=== PATIENT | female | born 1980 | race Asian ===

== ENCOUNTER 2017-01-17 23:07 | Outpatient (CLI) | payer OTHER ==
[2017-01-18] MEDS ORDERED: MONT10TA PO (00:49)
[2017-01-18] MEDS ORDERED: MULT VITAMI1 PO (03:30)
== END 2017-01-17 23:18 | disposition short-term general hospital (02) ==
LOC: AMB 23:07
DX: R53.1 Weakness (principal); R20.0 Anesthesia of skin
CPT/HCPCS: A0425; A0427

== ENCOUNTER 2017-01-17 23:27 | Observation (INO) | payer OTHER ==
[2017-01-17] VITALS (7 sets, daily range): BP systolic 134–166; BP diastolic 61–100; TEMP 98.4
[~2017-01-17] VITALS: Ht 167.6 cm; Wt 87.2 kg
[2017-01-17 23:59] LABS: PLATELET COUNT 305 K/uL (152-353)
[2017-01-18] VITALS (9 sets, daily range): BP systolic 120–153; BP diastolic 70–98; TEMP 98.1–98.5; BMI 31.0; BMI 26.0
[2017-01-18 00:04] LABS: POTASSIUM 3.4 mmol/L (3.6-5.2); SODIUM 135 mmol/L (136-145)
[2017-01-18] MEDS ORDERED: MONT10TA PO (00:49)
[2017-01-18 01:17] LABS: PARTIAL THROMBOPLASTIN TIME < 17.8 SECONDS (24.5-33.6)
[2017-01-18] MEDS ORDERED: MULT VITAMI1 PO (03:30)
--- NOTE | 2017-01-18 03:31 | NUR ---
RECEIVED PT FROM ER BY STRETCHER TO ROOM 1108. PT ADMITTED WITH TIA VS CVA. PT'S SPEECH IS CLEAR NO FACIAL DROOP.
[2017-01-18 12:56] LABS: PLATELET COUNT 292 K/uL (152-353)
[2017-01-18 13:10] LABS: POTASSIUM 3.6 mmol/L (3.6-5.2); SODIUM 135 mmol/L (136-145)
--- NOTE | 2017-01-18 21:04 | NUR ---
1939 D/C'ED PER YUSUF DOE RN. D/C INSTRUCTIONS PROVIDED. ENCOURAGED TO F/U WITH PCP IN 5-7 DAYS. NO PRESCRIPTIONS GIVEN. TRANSPORTED OUT VIA W/C BY Suraj DOE RN.
== END 2017-01-18 19:40 | disposition home or self-care (01) ==
LOC: ED 23:27 → MED/SURG 01-18 00:45 → ED 01-18 01:24 → MED/SURG 01-18 19:40
PROVIDERS: Internal Medicine
DX: R53.1 Weakness (principal); I10 Essential (primary) hypertension
CPT/HCPCS: 80053; 80307; 80320; 81000; 82550; 82553; 84484; 85027; 85610; 85730; 93005; 96374; 99220; G0378; G0479; J0696; J1650; J1885; J2405; J3490

== ENCOUNTER 2017-03-14 13:03 | Outpatient (CLI) | payer OTHER ==
[~2017-03-14 13:03] MED LIST: MONT10TA PO; MULT VITAMI1 PO
[2017-03-14 13:28] LABS: PLATELET COUNT 282 K/uL (152-353)
[2017-03-14 14:33] LABS: POTASSIUM 4.1 mmol/L (3.6-5.2); SODIUM 138 mmol/L (136-145)
== END 2017-03-14 14:00 | disposition home or self-care (01) ==
LOC: LAB 13:03
PROVIDERS: Nurse Practitioner Family
DX: Z00.00 Encounter for general adult medical examination without abnormal findings (principal); D64.89 Other specified anemias; G43.809 Other migraine, not intractable, without status migrainosus; E55.9 Vitamin D deficiency, unspecified; E78.00 Pure hypercholesterolemia, unspecified
CPT/HCPCS: 80053; 80061; 82306; 82607; 83036; 84436; 84443; 85027

== ENCOUNTER 2017-03-31 03:30 | Observation (INO) | payer OTHER ==
[~2017-03-31] VITALS: Ht 170.2 cm; Wt 85.4 kg
[2017-03-31] MEDS ORDERED: LIPITOR10 MG PO (03:34)
[2017-03-31] MEDS ORDERED: LORTAB 10-325 M1 TAB PO (03:35)
[2017-03-31] MEDS ORDERED: PROM25TA52 PO (03:35)
[2017-03-31] MEDS ORDERED: BAYER CHEWABLE81 MG PO (03:36)
[2017-03-31 03:38] VITALS: BP 153/97; TEMP 98.2
[2017-03-31 03:55] LABS: PLATELET COUNT 275 K/uL (152-353)
[2017-03-31 04:03] LABS: POTASSIUM 3.3 mmol/L (3.6-5.2); SODIUM 136 mmol/L (136-145)
[2017-03-31 04:18] LABS: PARTIAL THROMBOPLASTIN TIME 23.6 SECONDS (24.5-33.6)
[2017-03-31 08:21] VITALS: BP 139/93; TEMP 98.6; Ht 170.2 cm; Wt 85.4 kg
[2017-03-31 12:00] VITALS: BP 108/76; TEMP 98.4
[2017-03-31 16:00] VITALS: BP 129/88; TEMP 98.1
[2017-03-31 20:00] VITALS: BP 123/82; TEMP 97.7
[2017-04-01] VITALS: BP 133/84; TEMP 97.9
[2017-04-01 04:00] VITALS: BP 131/88; TEMP 98
[2017-04-01 05:44] LABS: PLATELET COUNT 228 K/uL (152-353)
[2017-04-01 05:51] LABS: POTASSIUM 4.1 mmol/L (3.6-5.2); SODIUM 140 mmol/L (136-145)
[2017-04-01 08:00] VITALS: BP 131/86; TEMP 97.8
[2017-04-01 11:57] VITALS: BP 150/102; TEMP 98.3
[2017-04-01 16:00] VITALS: BP 147/84; TEMP 99.3
[2017-04-01 20:00] VITALS: BP 129/86; TEMP 98
[2017-04-02] VITALS: BP 124/89; TEMP 98
[2017-04-02 04:00] VITALS: BP 146/91; TEMP 98
[2017-04-02 04:25] LABS: PLATELET COUNT 242 K/uL (152-353)
[2017-04-02 04:49] LABS: POTASSIUM 3.8 mmol/L (3.6-5.2); SODIUM 136 mmol/L (136-145)
[2017-04-02 08:00] VITALS: BP 126/79; TEMP 98.9
[2017-04-02 12:00] VITALS: BP 137/90; TEMP 99.2
== END 2017-04-02 15:00 | disposition home or self-care (01) ==
LOC: ED 03:30 → MED/SURG 04:50
PROVIDERS: Emergency Medicine; ADMIT Family Medicine
DX: R07.89 Other chest pain (principal); E03.8 Other specified hypothyroidism; E87.6 Hypokalemia; R73.9 Hyperglycemia, unspecified; F32.89 Other specified depressive episodes; F41.8 Other specified anxiety disorders
CPT/HCPCS: 36415; 36600; 80048; 80053; 81000; 82550; 82805; 83735; 83880; 84443; 84484; 85007; 85027; 85610; 85730; 93005; 96360; 96361; 96367; 96374; 99220; 99283; G0378; J1650; Q9963

== ENCOUNTER 2017-04-17 15:45 | Outpatient (CLI) | payer OTHER ==
[~2017-04-17 15:45] MED LIST changes: +BAYER CHEWABLE81 MG PO; +LIPITOR10 MG PO; +LORTAB 10-325 M1 TAB PO; +PROM25TA52 PO
== END 2017-04-17 16:50 | disposition home or self-care (01) ==
LOC: LABW 15:45
DX: G45.0 Vertebro-basilar artery syndrome (principal); G43.009 Migraine without aura, not intractable, without status migrainosus
CPT/HCPCS: 36415; 83090; 85651; 86039

== ENCOUNTER 2017-04-23 09:54 | Outpatient (CLI) | payer OTHER | END 2017-04-23 11:00 | disposition home or self-care (01) | LOC: RESP 09:54 | DX: E78.4 Other hyperlipidemia (principal) | CPT/HCPCS: 93306 ==

== ENCOUNTER 2017-05-08 12:13 | Emergency (ER) | payer OTHER ==
[~2017-05-08] VITALS: Ht 167.6 cm; Wt 83.9 kg
[2017-05-08 12:15] VITALS: TEMP 98.1
[2017-05-08 12:52] LABS: PLATELET COUNT 289 K/uL (152-353)
[2017-05-08 12:58] LABS: POTASSIUM 3.8 mmol/L (3.6-5.2); SODIUM 138 mmol/L (136-145)
[2017-05-08 13:43] VITALS: BP 130/89
== END 2017-05-08 13:43 | disposition home or self-care (01) ==
LOC: ED 12:13
DX: I10 Essential (primary) hypertension (principal); R00.0 Tachycardia, unspecified
CPT/HCPCS: 36415; 80053; 82550; 84484; 85027; 93005; 99283

== ENCOUNTER 2018-04-18 16:33 | Outpatient (CLI) | payer OTHER | END 2018-04-18 19:21 | disposition home or self-care (01) | LOC: CT 16:33 | DX: K44.9 Diaphragmatic hernia without obstruction or gangrene (principal) | CPT/HCPCS: Q9963 ==

== ENCOUNTER 2020-10-19 12:56 | Outpatient (CLI) | payer OTHER | END 2020-10-19 19:57 | disposition home or self-care (01) | LOC: MAMMO 12:56 | PROVIDERS: ATTEND Obstetrics & Gynecology | DX: Z12.31 Encounter for screening mammogram for malignant neoplasm of breast (principal) ==

== ENCOUNTER 2021-03-14 18:00 | Observation (INO) | payer OTHER ==
[~2021-03-14] VITALS: Ht 170.2 cm; Wt 85.3 kg
[2021-03-14 19:06] LABS: PLATELET COUNT 316 K/uL (152-353)
[2021-03-14 19:33] VITALS: BP 142/95; TEMP 98.3
[2021-03-14 20:23] LABS: POTASSIUM 3.3 mmol/L (3.6-5.2); SODIUM 137 mmol/L (136-145)
[2021-03-14 20:31] LABS: PARTIAL THROMBOPLASTIN TIME 25.6 SECONDS (24.5-33.6)
[2021-03-14] MEDS ORDERED: NP THYROID30 MG (21:58)
[2021-03-14] MEDS ORDERED: FEXOFENADINE H180 M1 PO (21:59)
[2021-03-14] MEDS ORDERED: AMIODARONE PO (22:01)
[2021-03-14] MEDS ORDERED: PROPRANOLOL1 MG/ML PO (22:03)
--- NOTE | 2021-03-14 22:14 | NUR ---
EMPTIED 400 ML OF URINE. NITROGLYCIN 1 INCH APPLIED TO CHEST WALL. REVIEWED HOME MEDICATIONS. HOME MEDICATION INFORMATION WAS ADDED TO PT'S INFO.
[2021-03-14 22:40] VITALS: BP 142/95; TEMP 98.3; Ht 170.2 cm; Wt 85.3 kg
--- NOTE | 2021-03-14 23:03 | NUR ---
REPORTED LABS TO DR. RAMIREZ. CBC/CMP/DDIMER/TSH/PT/PTT. NEW ORDERS RECEIVED AND CARRIED OUT.
[2021-03-14 23:39] VITALS: BP 117/75; TEMP 98.4
[2021-03-15 03:48] LABS: PLATELET COUNT 281 K/uL (152-353)
--- NOTE | 2021-03-15 03:56 | NUR ---
PT REQUESTED FOR NITRO PATCH TO BE TAKEN OFF. COMPLAINED OF HEADACHE AND SAID THAT SHE DIDNT WANT THAT. STATED THAT SHE WASNT HAVING CHEST PAIN OR AND CHEST DISCOMFORT.
[2021-03-15 04:00] VITALS: BP 111/74; TEMP 97.9
--- NOTE | 2021-03-15 04:23 | NUR ---
PT HAS BEEN GIVEN 40 OF POTASSIUM PO PER ELECTROLYTE PROTOCAL EARLIER. 2 HOURS AFTER THAT ADMINISTRATION 20 ANAHI OF POTASSIUM GIVEN.
--- NOTE | 2021-03-15 04:37 | NUR ---
PT WITH SR ON TELEMETRY. RATE IS 84 BPM.
[2021-03-15 05:03] LABS: POTASSIUM 3.7 mmol/L (3.6-5.2)
[2021-03-15 08:00] VITALS: BP 118/81; TEMP 97.5
--- NOTE | 2021-03-15 09:11 | NUR ---
REPORTED MORNING LABS TO DR. RAMIREZ, DR. RAMIREZ ORDERS FOR PREALBUMIN LAB TO BE DRAWN, GIVE POTASSIUM 20MEQ PO X1 NOW, RESTART HOME MEDS, AND TO MAKE AN APPOINTMENT WITH A SHAKE SPLITTER AT DISCHARGE, NO FURTHER ORDERS GIVEN AT THIS TIME
[2021-03-15] MEDS ORDERED: AMLODIPINE BESYLATE PO (09:52)
--- NOTE | 2021-03-15 11:03 | NUR ---
EKG COMPLETED AND GIVEN TO NURSE AT THIS TIME.
[2021-03-15 12:00] VITALS: BP 117/77; TEMP 98.1
--- NOTE | 2021-03-15 13:00 | NUR ---
DC INSTRUCTIONS GIVEN AND EXPLAINED TO PT, PT VERBALIZED UNDERSTANDING, F/U APPT MADE WITH DR. RAMIREZ ON 03/21/21 AT 1130, REFERRAL SENT TO DR. YOUSIF OFFICE FOR NEW PT APPT THEY STATED THEY WILL CONTACT PT WITH APPT TIME, OUTPT NUCLEAR STRESS TEST, ECHO, AND CT OF SINUSES TO BE SCHEDULED BY CENTRAL SCHEDULING, CENTRAL SCHEDULING STATES THEY WILL CONTACT PT WITH APPT. DATE AND TIME, IV REMOVED WITH CATHETER INTACT, PT DC VIA AMBULATION TO PRIVATE VEHICLE WITH BY HER SIDE, NAD NOTED
== END 2021-03-15 14:22 | disposition home or self-care (01) ==
LOC: MED/SURG 18:00
PROVIDERS: ADMIT Family Medicine; ATTEND Family Medicine
DX: R07.89 Other chest pain (principal); R05 Cough; E05.80 Other thyrotoxicosis without thyrotoxic crisis or storm; I10 Essential (primary) hypertension; R00.0 Tachycardia, unspecified
CPT/HCPCS: 36415; 80053; 82550; 82553; 83605; 83735; 83880; 84100; 84134; 84443; 84484; 85027; 85379; 85610; 85730; 87635; 93005; 96372; 99220; G0378; G0379; J1650; U0003

== ENCOUNTER 2021-04-06 08:05 | Outpatient (CLI) | payer OTHER ==
[~2021-04-06] VITALS: Ht 33 cm; Wt 0.5 kg
[~2021-04-06 08:05] MED LIST changes: +AMIODARONE PO; +AMLODIPINE BESYLATE PO; +FEXOFENADINE H180 M1 PO; +NP THYROID30 MG; +PROPRANOLOL1 MG/ML PO
== END 2021-04-06 22:40 | disposition home or self-care (01) ==
LOC: CT 08:05
PROVIDERS: ATTEND Family Medicine
DX: J32.9 Chronic sinusitis, unspecified (principal)
CPT/HCPCS: A9500

== ENCOUNTER 2021-06-13 14:02 | Outpatient (CLI) | payer OTHER | END 2021-06-13 21:26 | disposition home or self-care (01) | LOC: RESP 14:02 | PROVIDERS: ATTEND Specialist | DX: R06.02 Shortness of breath (principal); R00.2 Palpitations; R07.89 Other chest pain ==

== ENCOUNTER 2021-11-05 02:15 | Emergency (ER) | payer OTHER ==
[~2021-11-05] VITALS: Ht 170.2 cm; Wt 84.8 kg
[2021-11-05 04:18] LABS: PLATELET COUNT 212 K/uL (152-353)
[2021-11-05 04:35] LABS: POTASSIUM 3.9 mmol/L (3.6-5.2)
[2021-11-05 04:50] LABS: PARTIAL THROMBOPLASTIN TIME 24.7 SECONDS (24.5-33.6)
[2021-11-05 06:40] VITALS: BP 110/70; TEMP 97.8
== END 2021-11-05 06:40 | disposition home or self-care (01) ==
LOC: ED 02:15
PROVIDERS: Family Medicine
DX: U07.1 COVID-19 (principal); T88.7XXA Unspecified adverse effect of drug or medicament, initial encounter; T40.425A Adverse effect of tramadol, initial encounter; X58.XXXA Exposure to other specified factors, initial encounter; Y92.89 Other specified places as the place of occurrence of the external cause
CPT/HCPCS: 36415; 80053; 82550; 84484; 85027; 85610; 85730; 93005; 96360; 99284